=== PATIENT | male | born 1985 | race Caucasian/White ===

== ENCOUNTER → 2018-02-07 | Outpatient (CLI) | payer OTHER ==
--- NOTE | 2018-02-17 09:38 | CODING QUERY NO DIAGNOSIS ---
: 1985 TREATMENT RENDERED WITHOUT A DIAGNOSIS To promote full compliance with coding requirements relating to patient care, physician participation is requested in all cases of marble installation helper uncertainty. Please assist us with providing a diagnosis/symptom for the test(s) below: A diagnosis/symptom was not documented on your Order. A valid diagnosis/symptom is required to bill all insurances. Please remember that we are unable to code a diagnosis of rule out, probable, possible, questionable, or suspected. Tests that require a diagnosis: DOS: 02/07/18 * SEMEN ANALYSIS DIAGNOSIS: Provider Signature: Date: Thank you Camille Leonard [email or web address] Once completed, please kindly fax back to [phone] For questions please call [phone]
== END | disposition home or self-care (01) ==
LOC: C.LAB 08:22
PROVIDERS: ATTEND Specialist
DX: N46.9 Male infertility, unspecified (principal)